=== PATIENT | male | born 2000 | race Hispanic/Latino ===

== ENCOUNTER 2021-06-24 19:03 | Emergency (ER) | payer SELFPAY ==
[2021-06-25 11:11] LABS: SARS-CoV-2 PCR by NAA Not Detected (NotDetected)
== END 2021-06-24 20:06 | disposition home or self-care (01) ==
LOC: ERS 19:03
DX: Z20.822 Contact with and (suspected) exposure to COVID-19 (principal)
CPT/HCPCS: 99283; U0003; U0005

== ENCOUNTER 2021-11-21 12:30 | Emergency (ER) | payer SELFPAY | END 2021-11-21 13:28 | disposition home or self-care (01) | LOC: ERS 12:30 | DX: H11.33 Conjunctival hemorrhage, bilateral (principal); J30.9 Allergic rhinitis, unspecified | CPT/HCPCS: 99283 ==

== ENCOUNTER 2022-11-18 18:06 | Emergency (ER) | payer SELFPAY | END 2022-11-18 18:51 | disposition home or self-care (01) | LOC: ERS 18:06 | DX: L03.115 Cellulitis of right lower limb (principal) | CPT/HCPCS: 99283 ==